=== PATIENT | male | born 1955 | race Caucasian/White ===

== ENCOUNTER 2019-04-03 05:12 | Inpatient (IN) | payer MEDICARE, OTHER ==
[2019-04-03] MEDS: HEPARIN 1000 UNITS/ML 10 ML INJ IRR
[2019-04-03 06:22] LABS: ADD MAN DIFF? NO
[2019-04-03 06:29] LABS: ABNORMAL IP MESSAGE 1; BASOPHIL # 0.1 10^3/ul (0.0-0.1); BASOPHILS % 0.4 % (0.0-2.0); EOSINOPHILS % 0.1 % (0.0-7.0); HEMATOCRIT 50.5 % (42.0-52.0); HEMOGLOBIN 17.2 g/dl (14.0-18.0); LYMPHOCYTES # 1.3 10^3/ul (0.8-2.9); LYMPHOCYTES % 5.1 % (15.0-51.0); MEAN CORPUSCULAR HEMOGLOBIN 30.5 pg (29.0-33.0); MEAN CORPUSCULAR HGB CONC 34.1 g/dl (32.0-37.0); MEAN CORPUSCULAR VOLUME 89.5 fl (82.0-101.0); MEAN PLATELET VOLUME 11.1 fl (7.4-10.4); MONOCYTE # 1.4 10^3/ul (0.3-0.9); MONOCYTES % 5.7 % (0.0-11.0); NEUTROPHIL # 21.9 10^3/ul (1.6-7.5); NEUTROPHILS % 87.7 % (39.0-77.0); PLATELET COUNT 367 10^3/UL (140-415); POSITIVE DIFF @See below; RED BLOOD COUNT 5.64 10^6/ul (4.70-6.10); RED CELL DISTRIBUTION WIDTH 12.5 % (11.5-14.5)
[2019-04-03 06:44] LABS: HOLD TRANSMISSIONS 1
[2019-04-03 06:49] LABS: INR 0.91; PROTIME 12.4 Sec (11.9-14.9)
[2019-04-03 06:50] LABS: PARTIAL THROMBOPLASTIN TIME 32.1 Sec (23.0-35.0)
[2019-04-03] MEDS: ACETAMINOPHEN 500 MG TAB PO (06:51)
[2019-04-03] MEDS: SOD CHLORIDE 0.9% 1,000 ML IV (06:53)
[2019-04-03 06:55] LABS: ALANINE AMINOTRANSFERASE 21 IU/L (13-69); ALBUMIN 4.4 g/dl (3.3-4.9); ALBUMIN/GLOBULIN RATIO 1.18; ALKALINE PHOSPHATASE 81 IU/L (42-121); ANION GAP 14 (5-13); ASPARTATE AMINO TRANSFERASE 39 IU/L (15-46); BILIRUBIN,INDIRECT 0.3 mg/dl (0-1.1); BILIRUBIN,TOTAL 0.3 mg/dl (0.2-1.3); BLOOD UREA NITROGEN 15 mg/dl (7-20); CALCIUM 10.2 mg/dl (8.4-10.2); CARBON DIOXIDE 23 mmol/L (21-31); CHLORIDE 102 mmol/L (97-110); Estimated GFR > 60 mL/min (>60); GLUCOSE 295 mg/dl (70-220); POTASSIUM 4.4 mmol/L (3.5-5.1); SODIUM 139 mmol/L (135-144); TOTAL PROTEIN 8.1 g/dl (6.1-8.1)
[2019-04-03] MEDS ORDERED: DESFLURANE 15 MIN (07:00)
[2019-04-03] MEDS ORDERED: GELATIN SIZE 100 SPONGE (07:02)
[2019-04-03] MEDS ORDERED: HEPARIN 1000 UNITS/ML 10 ML INJ (07:03)
[2019-04-03] MEDS ORDERED: THROMBIN 5000 UNIT (RECOTHROM) VIAL ×2 (07:03→09:47)
[2019-04-03] MEDS ORDERED: LIDOCAINE 1% (MPF) 30 ML INJ (07:03)
[2019-04-03] MEDS ORDERED: FENTAnyl 50 MCG/ML VIAL IV ×3 (07:30→10:30)
[2019-04-03] MEDS ORDERED: ATROPINE 1 MG/10 ML SYRINGE IV (07:30)
[2019-04-03] MEDS ORDERED: EPHEDrine 25 MG/5 ML SYG IV ×2 (07:30→10:30)
[2019-04-03] MEDS ORDERED: ALBUTEROL 0.083% (NEB) 2.5 MG/3 ML AMP HHN (07:30)
[2019-04-03] MEDS ORDERED: HYDROmorphONE 1 MG/5 ML IV SYRINGE IV ×5 (07:30→10:30)
[2019-04-03] MEDS ORDERED: LABETALOL HCL 20MG INJ IV (07:30)
[2019-04-03] MEDS ORDERED: KETOROLAC 15 MG INJ IV (07:30)
[2019-04-03] MEDS ORDERED: DIPHENHYDRAMINE 50 MG INJ IV ×2 (07:30→10:30)
[2019-04-03] MEDS ORDERED: ONDANSETRON 4 MG INJ IV ×3 (07:30→16:00)
[2019-04-03] MEDS ORDERED: OXYCODONE/ACETAMINOPHEN (5/325) TAB PO ×2 (07:30)
[2019-04-03] MEDS ORDERED: morphine 2 MG INJ IV ×2 (07:30)
[2019-04-03] MEDS ORDERED: LEVALBUTEROL (NEB) 0.63 MG/3 ML AMP HHN (07:30)
[2019-04-03] MEDS ORDERED: hydrALAzine 20 MG INJ IV (07:30)
[2019-04-03] MEDS ORDERED: FENTAnyl 50 MCG/ML VIAL (07:37)
[2019-04-03] MEDS ORDERED: ONDANSETRON 4 MG INJ (08:03)
[2019-04-03] MEDS ORDERED: LIDOCAINE 2% (SDV) 5 ML INJ ×2 (08:03→10:20)
[2019-04-03] MEDS ORDERED: ROCURONIUM 50 MG INJ ×2 (08:03→10:20)
[2019-04-03] MEDS ORDERED: FAMOTIDINE 20 MG INJ (08:03)
[2019-04-03] MEDS ORDERED: CEFAZOLIN 1 GM INJ (08:03)
[2019-04-03] MEDS ORDERED: PHENYLephrine 10 MG INJ ×2 (08:29→09:51)
[2019-04-03] MEDS: GELATIN SIZE 100 SPONGE TOP (09:49)
[2019-04-03] MEDS: THROMBIN 5000 UNIT (RECOTHROM) VIAL TOP (09:49)
[2019-04-03] MEDS ORDERED: NEOSTIGMINE 3 MG/3 ML SYRINGE (10:20)
[2019-04-03] MEDS ORDERED: GLYCOPYRROLATE 0.4 MG INJ (10:20)
[2019-04-03] MEDS ORDERED: ETOMIDATE 20 MG INJ (10:20)
[2019-04-03] MEDS ORDERED: MIDAZOLAM 1 MG/ML 2 ML INJ (10:21)
[2019-04-03] MEDS ORDERED: MEPERIDINE 25 MG INJ IV (10:30)
[2019-04-03] MEDS ORDERED: DEXTROSE 50% 50 ML SYRINGE IV ×2 (15:00)
[2019-04-03] MEDS ORDERED: GLUCAGON 1 MG INJ IM (15:00)
[2019-04-03] MEDS ORDERED: GLUCOSE GEL 15 GRAM TUBE BUCCAL (15:00)
[2019-04-03] MEDS ORDERED: GLUCOSE GEL 15 GRAM TUBE PO ×2 (15:00)
[2019-04-03] MEDS: HYDROCODONE/APAP (5/325) TAB PO (15:56)
[2019-04-03] MEDS: INSULIN ASPART [NOVOLOG] 3 ML PEN SC ×3 (17:15→20:43)
[2019-04-03] MEDS: morphine 4 MG/ML VIAL IV (18:22)
[2019-04-03] MEDS: ATORVASTATIN 10 MG TAB PO (20:37)
[2019-04-03] MEDS: DOCUSATE SODIUM 100 MG CAP PO (20:37)
[2019-04-03] MEDS: FERROUS SULFATE (EC) 325 MG TAB PO (20:37)
[2019-04-03] MEDS: INSULIN GLARGINE [LANTus] (100 UNITS/ML) SYG SC (20:38)
[2019-04-04] MEDS: ACCU-CHEK XX (02:00)
[2019-04-04] MEDS ORDERED: THROMBIN 5000 UNIT (RECOTHROM) VIAL (07:14)
[2019-04-04] MEDS ORDERED: GELATIN SIZE 100 SPONGE (07:14)
[2019-04-04] MEDS: INSULIN ASPART [NOVOLOG] 3 ML PEN SC ×7 (07:35→21:04)
[2019-04-04] MEDS ORDERED: SEVOFLURANE 15 MIN (07:45)
[2019-04-04] MEDS ORDERED: PROPOFOL 20 ML (07:47)
[2019-04-04] MEDS ORDERED: FENTAnyl 50 MCG/ML VIAL (07:47)
[2019-04-04] MEDS ORDERED: PHENYLephrine (100 MCG/ML) 10ML SYG (08:07)
[2019-04-04] MEDS ORDERED: CEFAZOLIN 1 GM INJ (08:07)
[2019-04-04] MEDS ORDERED: HYDROmorphONE 1 MG/5 ML IV SYRINGE IV (08:30)
[2019-04-04] MEDS ORDERED: MEPERIDINE 25 MG INJ IV (08:30)
[2019-04-04] MEDS ORDERED: FENTAnyl 50 MCG/ML VIAL IV (08:30)
[2019-04-04] MEDS ORDERED: ONDANSETRON 4 MG INJ IV (08:30)
[2019-04-04] MEDS ORDERED: SAXAGLIPTIN HYDROCHLORIDE 5 MG TAB PO (09:00)
[2019-04-04] MEDS: LISINOPRIL 5 MG TAB PO (09:00)
[2019-04-04] MEDS: ASCORBIC ACID 500 MG TAB PO (09:01)
[2019-04-04] MEDS: DULOXETINE 30 MG CAP DR PO (09:01)
[2019-04-04] MEDS: DOCUSATE SODIUM 100 MG CAP PO ×2 (09:01→20:55)
[2019-04-04] MEDS: PANTOPRAZOLE (EC) 40 MG TAB PO (09:01)
[2019-04-04] MEDS: CYANOCOBALAMIN 500 MCG TAB PO (09:01)
[2019-04-04] MEDS: APIXABAN 5 MG TABLET PO ×2 (09:02→20:55)
[2019-04-04] MEDS: FERROUS SULFATE (EC) 325 MG TAB PO ×2 (09:02→20:55)
[2019-04-04] MEDS: LINAGLIPTIN 5 MG TABLET PO (09:02)
[2019-04-04] MEDS: NICOTINE (21 MG/24 HR) PATCH TRANSDERM (09:03)
[2019-04-04 10:31] LABS: ADD MAN DIFF? NO
[2019-04-04 10:34] LABS: WHITE BLOOD COUNT 19.6 10^3/ul (4.8-10.8)
[2019-04-04 10:34] LABS: ABNORMAL IP MESSAGE 1; BASOPHIL # 0.1 10^3/ul (0.0-0.1); BASOPHILS % 0.5 % (0.0-2.0); EOSINOPHILS % 0.1 % (0.0-7.0); HEMATOCRIT 37.7 % (42.0-52.0); HEMOGLOBIN 12.5 g/dl (14.0-18.0); LYMPHOCYTES # 1.5 10^3/ul (0.8-2.9); LYMPHOCYTES % 7.8 % (15.0-51.0); MEAN CORPUSCULAR HEMOGLOBIN 30.3 pg (29.0-33.0); MEAN CORPUSCULAR HGB CONC 33.2 g/dl (32.0-37.0); MEAN CORPUSCULAR VOLUME 91.5 fl (82.0-101.0); MEAN PLATELET VOLUME 10.7 fl (7.4-10.4); MONOCYTE # 1.6 10^3/ul (0.3-0.9); MONOCYTES % 8.1 % (0.0-11.0); NEUTROPHIL # 16.3 10^3/ul (1.6-7.5); PLATELET COUNT 259 10^3/UL (140-415); POSITIVE DIFF @See below; RED BLOOD COUNT 4.12 10^6/ul (4.70-6.10); RED CELL DISTRIBUTION WIDTH 12.6 % (11.5-14.5)
[2019-04-04 10:50] LABS: ANION GAP 6 (5-13); BLOOD UREA NITROGEN 7 mg/dl (7-20); CALCIUM 8.5 mg/dl (8.4-10.2); CARBON DIOXIDE 29 mmol/L (21-31); CHLORIDE 101 mmol/L (97-110); CREATININE 0.41 mg/dl (0.61-1.24); Estimated GFR > 60 mL/min (>60); POTASSIUM 3.3 mmol/L (3.5-5.1); SODIUM 136 mmol/L (135-144)
[2019-04-04 11:10] LABS: GLUCOSE 194 mg/dl (70-220)
[2019-04-04] MEDS: POTASSIUM CHLORIDE (SR) 20 MEQ TAB PO ×2 (12:19→16:40)
[2019-04-04 12:30] LABS: HEMOGLOBIN A1C 10.7 % (0-5.9)
[2019-04-04] MEDS: HYDROCODONE/APAP (5/325) TAB PO ×2 (16:40→22:02)
[2019-04-04] MEDS: SOD CHLORIDE 0.9% 1,000 ML IV ×2 (17:37)
[2019-04-04] MEDS: INSULIN GLARGINE [LANTus] (100 UNITS/ML) SYG SC (20:54)
[2019-04-04] MEDS: ATORVASTATIN 10 MG TAB PO (20:55)
[2019-04-05] MEDS: ACCU-CHEK XX (02:00)
[2019-04-05 05:28] LABS: ADD MAN DIFF? NO
[2019-04-05 05:31] LABS: WHITE BLOOD COUNT 21.1 10^3/ul (4.8-10.8)
[2019-04-05 05:31] LABS: ABNORMAL IP MESSAGE 1; BASOPHIL # 0.1 10^3/ul (0.0-0.1); BASOPHILS % 0.4 % (0.0-2.0); EOSINOPHILS # 0.1 10^3/ul (0.0-0.5); EOSINOPHILS % 0.2 % (0.0-7.0); HEMATOCRIT 39.8 % (42.0-52.0); HEMOGLOBIN 13.1 g/dl (14.0-18.0); LYMPHOCYTES # 1.6 10^3/ul (0.8-2.9); LYMPHOCYTES % 7.8 % (15.0-51.0); MEAN CORPUSCULAR HEMOGLOBIN 30.2 pg (29.0-33.0); MEAN CORPUSCULAR HGB CONC 32.9 g/dl (32.0-37.0); MEAN CORPUSCULAR VOLUME 91.7 fl (82.0-101.0); MEAN PLATELET VOLUME 11.1 fl (7.4-10.4); MONOCYTE # 1.9 10^3/ul (0.3-0.9); MONOCYTES % 8.8 % (0.0-11.0); NEUTROPHIL # 17.4 10^3/ul (1.6-7.5); NEUTROPHILS % 82.2 % (39.0-77.0); PLATELET COUNT 291 10^3/UL (140-415); POSITIVE DIFF @See below; RED BLOOD COUNT 4.34 10^6/ul (4.70-6.10); RED CELL DISTRIBUTION WIDTH 12.4 % (11.5-14.5)
[2019-04-05 05:56] LABS: CHOLESTEROL 106 mg/dl (100-200)
[2019-04-05 05:56] LABS: HDL CHOLESTEROL 26 mg/dl (30-78); LDL CHOLESTEROL,CALCULATED 52 mg/dl; TRIGLYCERIDES 140 mg/dl (0-149)
[2019-04-05 06:02] LABS: ANION GAP 6 (5-13); BLOOD UREA NITROGEN 6 mg/dl (7-20); CALCIUM 9.1 mg/dl (8.4-10.2); CARBON DIOXIDE 29 mmol/L (21-31); CHLORIDE 100 mmol/L (97-110); CREATININE 0.42 mg/dl (0.61-1.24); Estimated GFR > 60 mL/min (>60); GLUCOSE 188 mg/dl (70-220); MAGNESIUM 1.9 mg/dl (1.7-2.5); POTASSIUM 4.6 mmol/L (3.5-5.1); SODIUM 135 mmol/L (135-144)
[2019-04-05] MEDS: INSULIN ASPART [NOVOLOG] 3 ML PEN SC ×7 (07:43→20:42)
[2019-04-05] MEDS: APIXABAN 5 MG TABLET PO ×2 (08:04→20:32)
[2019-04-05] MEDS: LINAGLIPTIN 5 MG TABLET PO (08:04)
[2019-04-05] MEDS: FERROUS SULFATE (EC) 325 MG TAB PO ×2 (08:04→20:32)
[2019-04-05] MEDS: DOCUSATE SODIUM 100 MG CAP PO ×2 (08:04→20:32)
[2019-04-05] MEDS: PANTOPRAZOLE (EC) 40 MG TAB PO (08:04)
[2019-04-05] MEDS: DULOXETINE 30 MG CAP DR PO (08:04)
[2019-04-05] MEDS: LISINOPRIL 5 MG TAB PO (08:04)
[2019-04-05] MEDS: ASCORBIC ACID 500 MG TAB PO (08:04)
[2019-04-05] MEDS: NICOTINE (21 MG/24 HR) PATCH TRANSDERM (08:05)
[2019-04-05] MEDS: CYANOCOBALAMIN 500 MCG TAB PO (08:05)
[2019-04-05] MEDS: HYDROCODONE/APAP (5/325) TAB PO ×2 (11:04→20:33)
[2019-04-05] MEDS: INSULIN GLARGINE [LANTus] (100 UNITS/ML) SYG SC (19:25)
[2019-04-05] MEDS: ATORVASTATIN 10 MG TAB PO (20:32)
[2019-04-05] MEDS: FISH OIL 1,000 MG CAP PO (20:32)
[2019-04-06] MEDS: ACCU-CHEK XX (02:00)
[2019-04-06 06:56] LABS: ADD MAN DIFF? NO
[2019-04-06 07:01] LABS: BASOPHIL # 0.1 10^3/ul (0.0-0.1); BASOPHILS % 0.4 % (0.0-2.0); EOSINOPHILS # 0.1 10^3/ul (0.0-0.5); EOSINOPHILS % 0.7 % (0.0-7.0); HEMATOCRIT 38.2 % (42.0-52.0); HEMOGLOBIN 12.5 g/dl (14.0-18.0); LYMPHOCYTES # 1.4 10^3/ul (0.8-2.9); LYMPHOCYTES % 6.7 % (15.0-51.0); MEAN CORPUSCULAR HEMOGLOBIN 30.4 pg (29.0-33.0); MEAN CORPUSCULAR HGB CONC 32.7 g/dl (32.0-37.0); MEAN CORPUSCULAR VOLUME 92.9 fl (82.0-101.0); MEAN PLATELET VOLUME 10.6 fl (7.4-10.4); MONOCYTE # 1.5 10^3/ul (0.3-0.9); NEUTROPHIL # 17.7 10^3/ul (1.6-7.5); NEUTROPHILS % 84.6 % (39.0-77.0); PLATELET COUNT 307 10^3/UL (140-415); RED BLOOD COUNT 4.11 10^6/ul (4.70-6.10); RED CELL DISTRIBUTION WIDTH 12.4 % (11.5-14.5)
[2019-04-06 07:01] LABS: WHITE BLOOD COUNT 20.9 10^3/ul (4.8-10.8)
[2019-04-06 07:23] LABS: MAGNESIUM 1.9 mg/dl (1.7-2.5)
[2019-04-06 07:23] LABS: PHOSPHORUS 3.7 mg/dl (2.5-4.9)
[2019-04-06 07:31] LABS: ANION GAP 6 (5-13); BLOOD UREA NITROGEN 10 mg/dl (7-20); CALCIUM 9.1 mg/dl (8.4-10.2); CARBON DIOXIDE 29 mmol/L (21-31); CHLORIDE 102 mmol/L (97-110); CREATININE 0.44 mg/dl (0.61-1.24); Estimated GFR > 60 mL/min (>60); GLUCOSE 211 mg/dl (70-220); SODIUM 137 mmol/L (135-144)
[2019-04-06] MEDS: ASCORBIC ACID 500 MG TAB PO (08:18)
[2019-04-06] MEDS: LINAGLIPTIN 5 MG TABLET PO (08:18)
[2019-04-06] MEDS: FERROUS SULFATE (EC) 325 MG TAB PO ×2 (08:18→20:48)
[2019-04-06] MEDS: LISINOPRIL 5 MG TAB PO (08:18)
[2019-04-06] MEDS: CYANOCOBALAMIN 500 MCG TAB PO (08:18)
[2019-04-06] MEDS: DULOXETINE 30 MG CAP DR PO (08:19)
[2019-04-06] MEDS: APIXABAN 5 MG TABLET PO ×2 (08:19→20:48)
[2019-04-06] MEDS: DOCUSATE SODIUM 100 MG CAP PO (08:19)
[2019-04-06] MEDS: HYDROCODONE/APAP (5/325) TAB PO ×2 (08:19→21:12)
[2019-04-06] MEDS: FISH OIL 1,000 MG CAP PO ×2 (08:19→20:48)
[2019-04-06] MEDS: PANTOPRAZOLE (EC) 40 MG TAB PO (08:20)
[2019-04-06] MEDS: INSULIN ASPART [NOVOLOG] 3 ML PEN SC ×7 (08:21→22:26)
[2019-04-06] MEDS: ASPIRIN 81 MG TAB PO (08:27)
[2019-04-06] MEDS: NICOTINE (21 MG/24 HR) PATCH TRANSDERM (08:32)
[2019-04-06] MEDS: BISACODYL (EC) 5 MG TAB PO (15:39)
[2019-04-06] MEDS: ATORVASTATIN 10 MG TAB PO (20:48)
[2019-04-06] MEDS: INSULIN GLARGINE [LANTus] (100 UNITS/ML) SYG SC (22:26)
[2019-04-07] MEDS: ACCU-CHEK XX (02:00)
[2019-04-07] MEDS: HYDROCODONE/APAP (5/325) TAB PO ×2 (04:49→16:10)
[2019-04-07 06:56] LABS: ADD MAN DIFF? NO
[2019-04-07 07:00] LABS: WHITE BLOOD COUNT 17.1 10^3/ul (4.8-10.8)
[2019-04-07 07:00] LABS: BASOPHIL # 0.1 10^3/ul (0.0-0.1); BASOPHILS % 0.4 % (0.0-2.0); EOSINOPHILS # 0.2 10^3/ul (0.0-0.5); EOSINOPHILS % 1.2 % (0.0-7.0); HEMATOCRIT 37.3 % (42.0-52.0); LYMPHOCYTES # 1.3 10^3/ul (0.8-2.9); LYMPHOCYTES % 7.6 % (15.0-51.0); MEAN CORPUSCULAR HEMOGLOBIN 29.4 pg (29.0-33.0); MEAN CORPUSCULAR HGB CONC 32.2 g/dl (32.0-37.0); MEAN CORPUSCULAR VOLUME 91.4 fl (82.0-101.0); MEAN PLATELET VOLUME 10.5 fl (7.4-10.4); MONOCYTE # 1.4 10^3/ul (0.3-0.9); MONOCYTES % 8.1 % (0.0-11.0); NEUTROPHIL # 14.1 10^3/ul (1.6-7.5); NEUTROPHILS % 82.2 % (39.0-77.0); PLATELET COUNT 366 10^3/UL (140-415); RED BLOOD COUNT 4.08 10^6/ul (4.70-6.10); RED CELL DISTRIBUTION WIDTH 12.4 % (11.5-14.5)
[2019-04-07 07:27] LABS: ANION GAP 5 (5-13); BLOOD UREA NITROGEN 10 mg/dl (7-20); CALCIUM 9.2 mg/dl (8.4-10.2); CARBON DIOXIDE 32 mmol/L (21-31); CHLORIDE 100 mmol/L (97-110); CREATININE 0.44 mg/dl (0.61-1.24); Estimated GFR > 60 mL/min (>60); GLUCOSE 189 mg/dl (70-220); SODIUM 137 mmol/L (135-144)
[2019-04-07 08:00] LABS: POTASSIUM 3.8 mmol/L (3.5-5.1)
[2019-04-07] MEDS: DULOXETINE 30 MG CAP DR PO (08:03)
[2019-04-07] MEDS: ASPIRIN 81 MG TAB PO (08:04)
[2019-04-07] MEDS: FERROUS SULFATE (EC) 325 MG TAB PO ×2 (08:04→20:45)
[2019-04-07] MEDS: ASCORBIC ACID 500 MG TAB PO (08:04)
[2019-04-07] MEDS: PANTOPRAZOLE (EC) 40 MG TAB PO (08:04)
[2019-04-07] MEDS: LINAGLIPTIN 5 MG TABLET PO (08:05)
[2019-04-07] MEDS: APIXABAN 5 MG TABLET PO ×2 (08:05→20:46)
[2019-04-07] MEDS: LISINOPRIL 5 MG TAB PO (08:05)
[2019-04-07] MEDS: FISH OIL 1,000 MG CAP PO ×2 (08:05→20:46)
[2019-04-07] MEDS: INSULIN ASPART [NOVOLOG] 3 ML PEN SC ×6 (08:06→17:26)
[2019-04-07] MEDS: NICOTINE (21 MG/24 HR) PATCH TRANSDERM (08:06)
[2019-04-07] MEDS: CYANOCOBALAMIN 500 MCG TAB PO (08:07)
[2019-04-07] MEDS: DOCUSATE SODIUM 100 MG CAP PO (11:03)
[2019-04-07] MEDS: MAGNESIUM CITRATE 300 ML BTL PO (16:11)
[2019-04-07] MEDS: ATORVASTATIN 10 MG TAB PO (20:45)
[2019-04-07] MEDS: INSULIN GLARGINE [LANTus] (100 UNITS/ML) SYG SC (21:09)
== END 2019-04-07 21:21 | disposition home health service (06) | DRG 252 ==
LOC: REC 05:12 → TEL 04-05 20:06 → ICU 10:56
PROVIDERS: Surgery Vascular Surgery
PROC: 04CL0ZZ Extirpation of Matter from Left Femoral Artery, Open Approach (ICD-10-PCS; principal; 2019-04-03 07:35)
PROC: 04UL0KZ Supplement Left Femoral Artery with Nonautologous Tissue Substitute, Open Approach (ICD-10-PCS; 2019-04-03 07:35)
PROC: 0KNT0ZZ Release Left Lower Leg Muscle, Open Approach (ICD-10-PCS; 2019-04-03 07:35)
PROC: 0KNT0ZZ Release Left Lower Leg Muscle, Open Approach (ICD-10-PCS; 2019-04-03 07:35)
PROC: 0KNT0ZZ Release Left Lower Leg Muscle, Open Approach (ICD-10-PCS; 2019-04-03 07:35)
PROC: 0KNT0ZZ Release Left Lower Leg Muscle, Open Approach (ICD-10-PCS; 2019-04-03 07:35)
DX: T82.818A Embolism due to vascular prosthetic devices, implants and grafts, initial encounter (principal); J95.821 Acute postprocedural respiratory failure; T79.A22A Traumatic compartment syndrome of left lower extremity, initial encounter; I47.2 Ventricular tachycardia; E11.65 Type 2 diabetes mellitus with hyperglycemia; Y71.2 Prosthetic and other implants, materials and accessory cardiovascular devices associated with adverse incidents; I10 Essential (primary) hypertension; E11.51 Type 2 diabetes mellitus with diabetic peripheral angiopathy without gangrene; E11.42 Type 2 diabetes mellitus with diabetic polyneuropathy; E78.5 Hyperlipidemia, unspecified; F32.9 Major depressive disorder, single episode, unspecified; Z89.611 Acquired absence of right leg above knee; M81.0 Age-related osteoporosis without current pathological fracture; E61.1 Iron deficiency; Y84.9 Medical procedure, unspecified as the cause of abnormal reaction of the patient, or of later complication, without mention of misadventure at the time of the procedure; Y92.239 Unspecified place in hospital as the place of occurrence of the external cause; E78.2 Mixed hyperlipidemia; F17.200 Nicotine dependence, unspecified, uncomplicated; T50.905A Adverse effect of unspecified drugs, medicaments and biological substances, initial encounter
CPT/HCPCS: 71045; 80048; 80053; 80061; 82962; 83036; 83735; 84100; 85025; 85610; 85730; 86850; 86900; 86901; 87081; 87086; 88304; 93005; 93306; 97162; 97530